=== PATIENT | female | born 1990 | race Caucasian/White ===

== ENCOUNTER 2020-05-10 10:32 | Emergency (ER) | payer OTHER ==
[~2020-05-10] VITALS: Ht 170.2 cm; Wt 72.6 kg
[2020-05-10 10:38] VITALS: BP 105/69
--- NOTE | 2020-05-10 10:43 | NUR ---
AMBULATED TO BED 6
--- NOTE | 2020-05-10 10:50 | NUR ---
C/O R SIDED PAIN WITH NAUSEA AND CHILLS, RADIATING TO BACK X TODAY ,PT AOX4 , AFIBRILE , AMBULATORY WITH STEADY GAIT , FLAT SOFT ABDOMEN. PMH-PCOS, HYPOTHYROIDISM
--- NOTE | 2020-05-10 11:03 | NUR ---
DR CROWE AT BEDSIDE EVALUATING PT.
--- NOTE | 2020-05-10 11:16 | NUR ---
Lab at bedside for blood draw.
[2020-05-10 11:33] LABS: BASOPHILS # (AUTO) 0.1 K/uL (0.00-0.22); BASOPHILS % (AUTO) 0.8 % (0.0-2.0); EOSINOPHILS # (AUTO) 0.1 K/uL (0-0.4); EOSINOPHILS % (AUTO) 0.7 % (0.0-4.0); HEMATOCRIT 42.3 % (36-48); LYMPHOCYTES # (AUTO) 2.2 K/uL (2.5-16.5); LYMPHOCYTES % (AUTO) 19.7 % (20.5-51.1); MEAN CORPUSCULAR HEMOGLOBIN 30 pg (27-31); MEAN CORPUSCULAR HGB CONC 33 g/dL (33-37); MEAN CORPUSCULAR VOLUME 89.8 fL (80-94); MONOCYTES # (AUTO) 0.7 K/uL (0.8-1.0); NEUTROPHILS # (AUTO) 8.2 K/uL (1.8-7.7); NEUTROPHILS % (AUTO) 72.8 % (42.2-75.2); PLATELET COUNT (AUTO) 292 K/uL (140-450); RED BLOOD CELL COUNT(AUTO) 4.71 MIL/uL (4.20-5.40); RED CELL DISTRIBUTION WIDTH 14.3 % (11.6-13.7); WHITE BLOOD COUNT (AUTO) 11.3 K/uL (4.8-10.8)
[2020-05-10] MEDS: MORPHINE SULFATE 4 MG/ML SYR IVP ONE (11:34)
[2020-05-10] MEDS: ONDANSETRON 4 MG/2 ML VIAL IVP ONE (11:35)
[2020-05-10] MEDS: NACL 0.9% 1,000 ML IV SCH (11:36)
[2020-05-10 11:42] LABS: APPEARANCE,URINE HAZY (CLEAR); COLOR,URINE YELLOW (YELLOW)
[2020-05-10 11:43] LABS: BILIRUBIN,URINE NEGATIVE (NEGATIVE); BLOOD, URINE 1+ (NEGATIVE); NITRITE, URINE NEGATIVE (NEGATIVE); PH,URINE 7.5 (5.0-9.0); UGLUCOSE NEGATIVE (NEGATIVE)
[2020-05-10 11:44] LABS: LEUKOCYTE ESTERASE ,URINE NEGATIVE (NEGATIVE)
[2020-05-10 11:45] LABS: RBC,URINE 0-5 /HPF (0-5); WBC,URINE 0-5 /HPF (0-5)
[2020-05-10 11:46] LABS: ALBUMIN 3.7 g/dL (3.4-5.0); ANION GAP 12.9 (8-16); CARBON DIOXIDE 26.1 mmol/L (21-32); CREATININE 0.7 mg/dL (0.6-1.3); TOTAL BILIRUBIN 0.5 mg/dL (0.0-1.0)
--- NOTE | 2020-05-10 12:36 | NUR ---
dr singh at bedside reevaluating pt.
[2020-05-10 12:45] VITALS: BP 105/69
--- NOTE | 2020-05-10 12:47 | NUR ---
Patient discharged with v/s stable. Written and verbal after care instructions given and explained regarding abdominal pain. Patient alert, oriented and verbalized understanding of instructions. Ambulatory with steady gait. All questions addressed prior to discharge. ID band removed. Patient advised to follow up with PMD. Rx of zofran , motrin and norco given. Patient educated on indication of medication including possible reaction and side effects. Opportunity to ask questions provided and answered.
== END 2020-05-10 12:47 | disposition home or self-care (01) ==
LOC: MED 10:32
DX: R10.11 Right upper quadrant pain (principal); R11.0 Nausea; E28.2 Polycystic ovarian syndrome; Z88.6 Allergy status to analgesic agent
CPT/HCPCS: 36415; 76705; 80053; 81001; 81002; 81025; 83690; 85025; 96361; 96374; 96375; 99284; J2270; J2405; J7030; Q0092

== ENCOUNTER 2021-01-01 17:39 | Emergency (ER) | payer OTHER ==
[~2021-01-01] VITALS: Ht 170.2 cm; Wt 72.1 kg
[2021-01-01 17:42] VITALS: BP 133/73
--- NOTE | 2021-01-01 17:48 | NUR ---
Pt ambulated ith an unsteady gait to ER bed 7.
--- NOTE | 2021-01-01 17:52 | NUR ---
30 Y/O FEMALE C/O MID UPPER BACK PAIN 8 DESCRIBES BURNING RADIATES DOWN TO HIPS X1WEEK AND DIZZINESS X1DAY. PT STATES SHE IS NAUSEAS AND ROOM IS SPINNING WHEN SHE BENDS DOWN, HAS NOT VOMITED. PT DENIES FEVER/CHILLS. DENIES ANY SYNCOPAL EPIDODES OR LOC. DENIES PMH ALLERGIES: TORADOL
--- NOTE | 2021-01-01 17:57 | NUR ---
PHYLICIA onofre at pt bedside for further evaluation.
--- NOTE | 2021-01-01 18:23 | NUR ---
PHYLICIA Angelo collected vaginal swabs per pelvic exam, walked to lab.
--- NOTE | 2021-01-01 19:13 | NUR ---
Gave report to ROHAN Cárdenas and ROHAN Lizama. Transfer of care at this time.
--- NOTE | 2021-01-01 19:13 | NUR ---
REPORT RECIEVED FROM ROHAN MENDEZ FOR SHIFT CHANGE.
--- NOTE | 2021-01-01 19:19 | NUR ---
Patient appears to be resting comfortably in bed. Vital Signs within normal limits. Respirations even and unlabored.
--- NOTE | 2021-01-01 20:01 | NUR ---
ERMD AT BEDSIDE.
--- NOTE | 2021-01-01 20:13 | NUR ---
EKG PERFORMED AT BEDSIDE. EKG READS SINUS RHYTHM @ 61
[2021-01-01] MEDS ORDERED: CYCL-654 PO (20:23)
[2021-01-01 20:42] VITALS: BP 109/65
--- NOTE | 2021-01-01 20:42 | NUR ---
Patient discharged with v/s stable. Written and verbal after care instructions given and explained. Patient alert, oriented and verbalized understanding of instructions. Ambulatory with steady gait. All questions addressed prior to discharge. ID band removed. Patient advised to follow up with PMD. Rx of CYCLOBENZAPRINE HCL given. Patient educated on indication of medication including possible reaction and side effects. Opportunity to ask questions provided and answered.
== END 2021-01-01 20:42 | disposition home or self-care (01) ==
LOC: MED 17:39
DX: R10.9 Unspecified abdominal pain (principal); M54.5 Low back pain; R30.0 Dysuria; R42 Dizziness and giddiness; Z79.899 Other long term (current) drug therapy; Z88.8 Allergy status to other drugs, medicaments and biological substances
CPT/HCPCS: 36415; 81002; 81025; 87070; 87086; 87205; 87210; 93005; 99284

== ENCOUNTER 2021-05-09 14:39 | Emergency (ER) | payer OTHER ==
[~2021-05-09] VITALS: Ht 170.2 cm; Wt 76.2 kg
[~2021-05-09 14:39] MED LIST: CYCL-654 PO
[2021-05-09 15:08] VITALS: BP 109/68
--- NOTE | 2021-05-09 15:20 | NUR ---
PATIENT PRESENTS TO ED WITH RLQ PAIN AND NAUSEA X2 DAYS . DENIES V/D; SKIN IS PINK/WARM/DRY; AAOX4 WITH EVEN AND STEADY GAIT; LUNGS CLEAR BL; HR EVEN AND REGULAR; PT DENIES ANY FEVER, CP, SOB, OR COUGH AT THIS TIME; PATIENT STATES PAIN OF 5/10 AT THIS TIME; VSS; PATIENT POSITIONED FOR COMFORT; HOB ELEVATED; BEDRAILS UP X2; BED DOWN. ER MD MADE AWARE OF PT STATUS.
[2021-05-09] MEDS ORDERED: KETOROLAC 30 MG/ML VIAL IM ONE (15:55)
--- NOTE | 2021-05-09 16:30 | NUR ---
PATIENT STATES THAT SHE HAD THE ADVERSE REACTION OF ANXIETY FROM RECEIVING TORADOL, BUT WOULD LIKE TO TRY MEDICATION AGAIN
[2021-05-09 16:41] LABS: BASOPHILS % (AUTO) 0.5 % (0.0-2.0); EOSINOPHILS # (AUTO) 0.1 K/uL (0-0.4); EOSINOPHILS % (AUTO) 1.3 % (0.0-4.0); HEMATOCRIT 41.7 % (36-48); HEMOGLOBIN 13.6 g/dL (12.0-16.0); LYMPHOCYTES # (AUTO) 2.3 K/uL (2.5-16.5); LYMPHOCYTES % (AUTO) 28.7 % (20.5-51.1); MEAN CORPUSCULAR HEMOGLOBIN 29 pg (27-31); MEAN CORPUSCULAR HGB CONC 33 g/dL (33-37); MEAN CORPUSCULAR VOLUME 90.1 fL (80-94); MONOCYTES # (AUTO) 0.7 K/uL (0.8-1.0); MONOCYTES % (AUTO) 8.6 % (1.7-9.3); NEUTROPHILS # (AUTO) 4.8 K/uL (1.8-7.7); NEUTROPHILS % (AUTO) 60.9 % (42.2-75.2); PLATELET COUNT (AUTO) 357 K/uL (140-450); RED BLOOD CELL COUNT(AUTO) 4.63 MIL/uL (4.20-5.40); RED CELL DISTRIBUTION WIDTH 14.5 % (11.6-13.7); WHITE BLOOD COUNT (AUTO) 7.9 K/uL (4.8-10.8)
[2021-05-09 16:44] LABS: APPEARANCE,URINE CLEAR (CLEAR); BILIRUBIN,URINE NEGATIVE (NEGATIVE); BLOOD, URINE NEGATIVE (NEGATIVE); COLOR,URINE YELLOW (YELLOW); LEUKOCYTE ESTERASE ,URINE NEGATIVE (NEGATIVE); NITRITE, URINE NEGATIVE (NEGATIVE); UGLUCOSE NEGATIVE (NEGATIVE)
--- NOTE | 2021-05-09 18:08 | NUR ---
PATIENT STATES THAT PAIN HAS DECREASED FROM 04/30 TO 2. MD MANZO NOTIFIED PATIENT OF SUSPECTED R/T + BLOOD TEST
[2021-05-09 18:24] LABS: ALBUMIN 3.5 g/dL (3.4-5.0); ANION GAP 13.2 (8-16); CARBON DIOXIDE 25.4 mmol/L (21-32); CREATININE 0.6 mg/dL (0.6-1.3); POTASSIUM 3.6 mmol/L (3.5-5.1); TOTAL BILIRUBIN 0.3 mg/dL (0.0-1.0)
--- NOTE | 2021-05-09 18:53 | NUR ---
PROVIDED PATIENT WITH A TUNA SANDWICH AND [place] CRACKERS TO EAT
--- NOTE | 2021-05-09 20:00 | NUR ---
AWAKE AND ALERT. RESTING COMFORTABLY. CONTINUES TO WAIT FOR DISPOSITION, LAB RESULT RETURN
[2021-05-09 21:00] VITALS: BP 121/70
--- NOTE | 2021-05-09 21:00 | NUR ---
Patient discharged with v/s stable. Written and verbal after care instructions given and explained. Patient verbalized understanding. Ambulatory with steady gait. All questions addressed prior to discharge. Advised to follow up with PMD.
== END 2021-05-09 21:00 | disposition home or self-care (01) ==
LOC: MED 14:39
DX: O20.0 Threatened abortion (principal); Z79.899 Other long term (current) drug therapy; Z88.8 Allergy status to other drugs, medicaments and biological substances
CPT/HCPCS: 36415; 76830; 76856; 80053; 81003; 81025; 83690; 84702; 84703; 85025; 86900; 86901; 96372; 99285; J1885

== ENCOUNTER 2021-05-11 08:44 | Emergency (ER) | payer OTHER ==
[~2021-05-11] VITALS: Ht 170.2 cm; Wt 76.2 kg
[2021-05-11 08:50] VITALS: BP 119/58
--- NOTE | 2021-05-11 08:56 | NUR ---
PT AMB TO BED 9
--- NOTE | 2021-05-11 08:57 | NUR ---
30 Y/O FEMALE FOLLOW UP FOR HCG BLOOD TEST. 3 WEEKS. LMP 01/18/21. SEEN HERE 05/09/21 FOR ABD PAIN. DENIES N/V, DENIES FEVER/CHILLS. PMH: PCOS ALLERGIES: TORADOL
--- NOTE | 2021-05-11 09:22 | NUR ---
LABS DRAWN AT PT BEDSIDE.
[2021-05-11 10:32] LABS: BASOPHILS % (AUTO) 0.6 % (0.0-2.0); EOSINOPHILS # (AUTO) 0.1 K/uL (0-0.4); EOSINOPHILS % (AUTO) 1.3 % (0.0-4.0); HEMOGLOBIN 13.9 g/dL (12.0-16.0); LYMPHOCYTES % (AUTO) 25.5 % (20.5-51.1); MEAN CORPUSCULAR HEMOGLOBIN 30 pg (27-31); MEAN CORPUSCULAR HGB CONC 34 g/dL (33-37); MEAN CORPUSCULAR VOLUME 89.1 fL (80-94); MONOCYTES # (AUTO) 0.7 K/uL (0.8-1.0); NEUTROPHILS % (AUTO) 63.6 % (42.2-75.2); PLATELET COUNT (AUTO) 322 K/uL (140-450); RED CELL DISTRIBUTION WIDTH 14.3 % (11.6-13.7); WHITE BLOOD COUNT (AUTO) 7.9 K/uL (4.8-10.8)
[2021-05-11 10:47] LABS: ALBUMIN 3.8 g/dL (3.4-5.0); ANION GAP 11.9 (8-16); CARBON DIOXIDE 25.8 mmol/L (21-32); CREATININE 0.6 mg/dL (0.6-1.3); POTASSIUM 3.7 mmol/L (3.5-5.1); TOTAL BILIRUBIN 0.3 mg/dL (0.0-1.0)
--- NOTE | 2021-05-11 10:49 | NUR ---
PT RSTING IN BED, VISIBLE EQUAL RISE AND FALL OF CHEST, VSS, WILL CONTINUE TO MONITOR.
[2021-05-11 12:16] VITALS: BP 117/60
== END 2021-05-11 12:17 | disposition home or self-care (01) ==
LOC: MED 08:44
DX: O26.891 Other specified pregnancy related conditions, first trimester (principal); Z79.899 Other long term (current) drug therapy; Z88.8 Allergy status to other drugs, medicaments and biological substances
CPT/HCPCS: 36415; 80053; 84702; 85025; 99283

== ENCOUNTER 2021-06-06 08:49 | Emergency (ER) | payer OTHER ==
[~2021-06-06] VITALS: Ht 170.2 cm; Wt 77.1 kg
[2021-06-06 09:06] VITALS: BP 114/69
--- NOTE | 2021-06-06 09:14 | NUR ---
PT AMB TO BED 12.
--- NOTE | 2021-06-06 09:29 | NUR ---
PATIENT PRESENTS TO ED WITH PELVIC PAIN AND VAGINAL BLEEDING YESTERDAY BUT NOT TODAY . PT STATES SHE IS ABOUT 7 WEEKS AND HAS NOT BEEN ABLE TO SEE HER OB RECENTLY D/T INSURANCE . DENIES N/V/D; SKIN IS PINK/WARM/DRY; AAOX4 WITH EVEN AND STEADY GAIT; LUNGS CLEAR BL; HR EVEN AND REGULAR; PT DENIES ANY FEVER, CP, SOB, OR COUGH AT THIS TIME; PATIENT STATES PAIN OF 3/10 AT THIS TIME; VSS; PATIENT POSITIONED FOR COMFORT; HOB ELEVATED; BEDRAILS UP X2; BED DOWN. ER MD MADE AWARE OF PT STATUS.
--- NOTE | 2021-06-06 09:45 | NUR ---
US at bedside
--- NOTE | 2021-06-06 10:49 | NUR ---
blood sample collected, walked to lab and placed on counter. No CPT available, CLS made aware.
[2021-06-06 11:21] LABS: BASOPHILS # (AUTO) 0.1 K/uL (0.00-0.22); BASOPHILS % (AUTO) 0.7 % (0.0-2.0); EOSINOPHILS # (AUTO) 0.1 K/uL (0-0.4); EOSINOPHILS % (AUTO) 1.2 % (0.0-4.0); HEMATOCRIT 39.1 % (36-48); HEMOGLOBIN 13.3 g/dL (12.0-16.0); LYMPHOCYTES # (AUTO) 2.1 K/uL (2.5-16.5); LYMPHOCYTES % (AUTO) 25.4 % (20.5-51.1); MEAN CORPUSCULAR HEMOGLOBIN 30 pg (27-31); MEAN CORPUSCULAR HGB CONC 34 g/dL (33-37); MEAN CORPUSCULAR VOLUME 89.3 fL (80-94); MONOCYTES # (AUTO) 0.7 K/uL (0.8-1.0); MONOCYTES % (AUTO) 8.7 % (1.7-9.3); NEUTROPHILS # (AUTO) 5.3 K/uL (1.8-7.7); PLATELET COUNT (AUTO) 301 K/uL (140-450); RED BLOOD CELL COUNT(AUTO) 4.39 MIL/uL (4.20-5.40); RED CELL DISTRIBUTION WIDTH 14.1 % (11.6-13.7); WHITE BLOOD COUNT (AUTO) 8.3 K/uL (4.8-10.8)
[2021-06-06 11:30] LABS: APPEARANCE,URINE HAZY (CLEAR); BILIRUBIN,URINE NEGATIVE (NEGATIVE); BLOOD, URINE NEGATIVE (NEGATIVE); COLOR,URINE YELLOW (YELLOW); LEUKOCYTE ESTERASE ,URINE NEGATIVE (NEGATIVE); NITRITE, URINE NEGATIVE (NEGATIVE); UGLUCOSE NEGATIVE (NEGATIVE)
[2021-06-06] MEDS ORDERED: MIRABULK PO (11:51)
[2021-06-06 12:26] VITALS: BP 121/72
== END 2021-06-06 12:26 | disposition home or self-care (01) ==
LOC: MED 08:49
DX: O20.0 Threatened abortion (principal); O26.891 Other specified pregnancy related conditions, first trimester; K59.00 Constipation, unspecified; Z3A.08 8 weeks gestation of pregnancy; Z79.899 Other long term (current) drug therapy; Z88.8 Allergy status to other drugs, medicaments and biological substances
CPT/HCPCS: 36415; 76817; 81003; 81025; 84702; 85025; 99284; Q0092